=== PATIENT | male | born 1940 | race Caucasian/White ===

== ENCOUNTER 2019-07-16 13:15 | Emergency (ER) | payer OTHER ==
[~2019-07-16] VITALS: Ht 177.8 cm; Wt 91.2 kg
[2019-07-16 13:15] VITALS: BP_SYST 137
--- NOTE | 2019-07-16 13:15 | NUR ---
BROUGHT BACK TO BED #3 AND TRIAGED, REPORT GIVEN TO CHRIS
--- NOTE | 2019-07-16 13:30 | NUR ---
PT HERE FOR BACK PAIN, DENIES RECENT INJURY. SUSTAINED INJRY 1994 INCREASE IN PAIN 7 DAYS AGO. UNABLE TO SLEEP. CLEAR MENTATION AND SPEECH. STAEDY GUARDED GAIT. BIB HIS SON FROM HOME
--- NOTE | 2019-07-16 13:40 | NUR ---
DR BILLY IN TO ASSESS
[2019-07-16] MEDS ORDERED: KETOROLAC TROMETHAMINE 60 MG/2 ML VIAL IM ONE (14:00)
[2019-07-16 14:21] VITALS: BP_SYST 126
--- NOTE | 2019-07-16 14:24 | NUR ---
Patient given written and verbal discharge instructions and verbalizes understanding. ER MD discussed with patient the results and treatment provided. Patient in stable condition. ID arm band removed. Rx of IBU/NORCO/ROBAXIN given. Patient educated on pain management and to follow up with PMD. Pain Scale 4/10. Opportunity for questions provided and answered. Medication side effect fact sheet provided.
== END 2019-07-16 14:24 | disposition home or self-care (01) ==
LOC: SED 13:15
DX: G89.29 Other chronic pain (principal); M54.5 Low back pain; Z88.0 Allergy status to penicillin; Z85.89 Personal history of malignant neoplasm of other organs and systems
CPT/HCPCS: 96372; 99283; J1885